=== PATIENT | male | born 1995 | race African-American/Black ===

== ENCOUNTER 2017-03-08 18:27 | Emergency (ER) | payer SELFPAY ==
[~2017-03-08] VITALS: Ht 172.7 cm; Wt 91.0 kg
[2017-03-08 18:39] VITALS: BP 118/72
== END 2017-03-09 00:47 | disposition left against medical advice (07) ==
LOC: ER 18:27
DX: R07.89 Other chest pain (principal); M54.2 Cervicalgia; M25.512 Pain in left shoulder; Z53.21 Procedure and treatment not carried out due to patient leaving prior to being seen by health care provider
CPT/HCPCS: 93005

== ENCOUNTER 2017-04-22 16:49 | Emergency (ER) | payer SELFPAY ==
[~2017-04-22] VITALS: Ht 172.7 cm; Wt 93.0 kg
[2017-04-22 23:15] LABS: BASOPHILS % 0.9 % (0.0-2.0); HEMATOCRIT. 43.2 % (42.0-52.0); HEMOGLOBIN. 14.3 g/dL (14.0-18.0); LYMPHOCYTES % 29.4 % (20.0-50.0); MEAN CORPUSCULAR HEMOGLOBIN 29.1 pg (28.0-32.0); MEAN CORPUSCULAR VOLUME 87.9 fL (80.0-94.0); MEAN PLATELET VOLUME 7.9 fl (7.4-10.4); MONOCYTES % 9.5 % (2.0-8.0); NEUTROPHILS % 59.2 % (40.0-76.0); PLATELET 254 x1000/uL (130-400); RED BLOOD CELL COUNT 4.91 mill/uL (4.7-6.1); RED CELL DISTRIBUTION WIDTH 14.6 % (11.6-14.6)
[2017-04-22 23:17] LABS: CHLORIDE 100 mEq/L (98-107)
[2017-04-22 23:20] LABS: CARBON DIOXIDE 31 mEq/L (21-32); ETHANOL BLOOD < 10 mg/dL
[2017-04-23] MEDS ORDERED: IBUPROFEN 600MG TABLET PO ONE
[2017-04-23 00:12] LABS: CLARITY URINE CLEAR (CLEAR); COLOR URINE YELLOW (YELLOW); GLUCOSE URINE NEGATIVE (NEGATIVE); KETONES URINE NEGATIVE (NEGATIVE); LEUKOCYTE ESTERASE URINE NEGATIVE (NEGATIVE); NITRITE URINE NEGATIVE (NEGATIVE); OCCULT BLOOD URINE NEGATIVE (NEGATIVE); PH URINE 7.5 (4.5-8.0); PROTEIN URINE NEGATIVE (NEGATIVE); SPECIFIC GRAVITY URINE 1.027 (1.005-1.030)
[2017-04-23 00:36] LABS: *AMPHETAMINES SCREEN URINE NEGATIVE (NEGATIVE); *BARBITURATES SCREEN URINE NEGATIVE (NEGATIVE); *BENZODIAZEPINES SCREEN URINE NEGATIVE (NEGATIVE); *COCAINE SCREEN URINE NEGATIVE (NEGATIVE); CANNABINOID URINE SCREEN NEGATIVE (NEGATIVE); METHADONE URINE SCREEN NEGATIVE (NEGATIVE); OPIATES URINE SCREEN NEGATIVE (NEGATIVE); PHENCYCLIDINE URINE SCREEN NEGATIVE (NEGATIVE)
[2017-04-23 02:15] VITALS: BP 148/85
== END 2017-04-23 02:15 | disposition home or self-care (01) ==
LOC: ER 16:49
DX: M79.1 Myalgia (principal)
CPT/HCPCS: 36415; 80053; 80305; 81003; 85025; 99284; G0482

== ENCOUNTER 2018-08-22 02:02 | Emergency (ER) | payer SELFPAY ==
[~2018-08-22] VITALS: Ht 182.9 cm; Wt 85.0 kg
[2018-08-22 02:09] VITALS: BP 133/70
== END 2018-08-22 03:07 | disposition left against medical advice (07) ==
LOC: ER 02:02
DX: R41.82 Altered mental status, unspecified (principal); Z53.21 Procedure and treatment not carried out due to patient leaving prior to being seen by health care provider

== ENCOUNTER 2018-08-23 13:14 | Emergency (ER) | payer SELFPAY ==
[~2018-08-23] VITALS: Ht 172.7 cm; Wt 90.0 kg
[2018-08-23] MEDS ORDERED: HYDROCODONE/ACETAMINOPHEN 5/325MG TABLET PO ONE (18:00)
[2018-08-23] MEDS ORDERED: ONDANSETRON 4MG ODT PO ONE (18:00)
[2018-08-23 20:41] VITALS: BP 173/93
== END 2018-08-23 20:48 | disposition home or self-care (01) ==
LOC: ER 13:58
DX: S89.81XA Other specified injuries of right lower leg, initial encounter (principal); V49.40XA Driver injured in collision with unspecified motor vehicles in traffic accident, initial encounter; M25.061 Hemarthrosis, right knee; Y93.89 Activity, other specified; Y92.410 Unspecified street and highway as the place of occurrence of the external cause
CPT/HCPCS: 73562; 73590; 93971; 99284; L1830; Q0162